=== PATIENT | male | born 1985 | race Caucasian/White ===

== ENCOUNTER 2022-03-08 16:47 | Emergency (ER) | payer SELFPAY ==
[2022-03-08 16:52] VITALS: BP 134/95; PULSE 81; RESP 16; TEMP 36.3; O2SAT 96
--- NOTE | 2022-03-08 17:09 | ED.GENADUL_ITS ---
Discharge Plan Disposition Patient Disposition: HOME Condition: Stable Discharge Details Clinical Impression: Encounter for re-check of laceration wound Primary Care Provider: Amada,Local ED Provider: Les Contreras Home Meds and New Rx's Prescriptions: No Action No Known Home Meds 0RF Discharge Instructions Additional Instructions: Typically sutures placed on the face should be removed after approximately 7 to 10 days time. Apply bacitracin to area twice daily for 3 days. Return develop a fever, redness, foul-smelling discharge from the wound or any other acute concerns Medical Decision Making 36-year-old male presents for wound check. He was struck with a blunt object last night over his right forehead, suffering a laceration to the right medial eyebrow. He states that his friend repaired this with nylon suture at home and now he presents for wound check. He had no loss of consciousness, he has not had any foul-smelling discharge, erythema. His pain is improving. He denied to me any neck or back pain and no other injury. Discussed with the patient that we prefer to perform suturing in the emergency department but at this time there is no further action for wound care. Will place on 3 days of topical antibiotic and the patient will remove the sutures after proxy 7 days. He understands indications to seek reevaluation in the ER. HPI General Mode of arrival: ambulatory . Date/Time Provider Initiated Documentation: 03/08/22 16:49 . Limitations to Documentation: no limitations . Information obtained by: patient . History of Present Illness 36 year old M presents to the emergency department with the chief complaint of Right medial eyebrow laceration last night, repaired, described as mild, Quality is described as dull and constant, and is localized to the head and right. Patient reports no radiation. Patient started experiencing this hour(s) and it has been now resolved. improves with No relieving factors improve symptom(s), No exacerbating factors reported . Patient notes denies confusion and headaches. Patient did receive the following treatments prior to arrival, none Related Data Home Medications Medication Instructions Recorded Confirmed Unknown [No Known Home Meds] 03/08/22 03/08/22 Allergies Allergy/AdvReac Type Severity Reaction Status Date / Time Penicillins Allergy Mild Hives Unverified 03/08/22 16:56 General Stated Complaint: Laceration MARY: 4 Review of Systems Narrative: Sutured with nylon by his friend at home. No other injury, denies headache, no neck pain, no loss of consciousness. 7 systems were reviewed and otherwise negative PFSH All Active Problems Encounter for re-check of laceration wound (Acute) Social History Smoking/Tobacco Use Status: Current every day Tobacco Type: cigarettes Smoking risk assessment performed?: Yes Alcohol Intake: current Alcohol Intake frequency: 0-2 drinks per day Alcohol type: beer Substance use type: does not use Do you feel safe at home: Yes Do you feel safe in your relationship?: Yes Exam Narrative Exam Narrative: GEN: awake, alert, oriented 3. Pleasant, well groomed, interactive. HEAD: Normocephalic, right eyebrow, medial portion with a laceration that has been repaired previously with nylon sutures. Minimal surrounding edema and right periorbital ecchymosis. No facial anesthesia, no midface instability ENT: Mucous membranes moist, oropharynx unremarkable, External ear exam unremarkable EYES: PERRL, EOMI NECK: Full ROM, no AMITA, no menigismus CHEST/RESP: Nontender, no respiratory distress EXT: Full ROM, no edema, no rash Neuro: Grossly normal neurologic exam, conversant, interactive. Psych: Speech fluent, thoughts congruent, affect normal Course Vital Signs Vital signs: Vital Signs Temperature 36.3 C L 03/08/22 16:52 Pulse 81 03/08/22 16:52 Respiratory Rate 16 03/08/22 16:52 Blood Pressure 134/95 H 03/08/22 16:52 Pulse Oximetry 96 03/08/22 16:52 Temperature 36.3 C L 03/08/22 16:52 Pulse 81 03/08/22 16:52 Respiratory Rate 16 03/08/22 16:52 Respiratory Effort 03/08/22 16:57 Blood Pressure 134/95 H 03/08/22 16:52 Pulse Oximetry 96 03/08/22 16:52 PAWSS Have you Been Recently Intoxicated or Drunk Within the Last 30 days?: Yes Have you Ever Experienced Previous Episodes of Alcohol Withdrawal?: No Have you ever Experienced Withdrawal Seizures?: No Have you ever Experienced Delirium Tremens(DT)s?: No Have you ever undergone Alcohol Rehabilitation Treatment (i.e, inpt ot outpatient treatment programs)?: No Have you ever Experienced Blackouts?: No Have you ever Combined Alcohol with other Downers within the last 90 days?: No Have you ever Combined Alcohol with any other Substance of Abuse during the last 90 days?: No Positive Blood Alcohol level on Presentation? [PCS.BAL]: No Evidence of Increased Autonomic Activity (i.e. HR>120, tremor, sweating, agitation, nausea)?: No Result: 1
[2022-03-08 17:12] VITALS: BP 132/68; PULSE 84; RESP 16; O2SAT 99
== END 2022-03-08 17:12 | disposition home or self-care (01) ==
PROVIDERS: Emergency Provider Emergency Medicine
DX: S01.111A Laceration without foreign body of right eyelid and periocular area, initial encounter (principal); W22.8XXA Striking against or struck by other objects, initial encounter
CPT/HCPCS: 99282